=== PATIENT | female | born 1980 | race Caucasian/White ===

== ENCOUNTER → 2024-04-14 08:02 | Outpatient (REF) | payer OTHER, SELFPAY ==
--- NOTE | 2024-04-14 08:10 | HM_ITS ---
* Total monitoring time 2 weeks. * Underlying rhythm is sinus with an average rate of 83/Min. * Rare supraventricular ectopy. * Rare ventricular ectopy. * No significant pauses or high-grade AV blocks. * Shortness of breath, heart racing in patient diary correlates with sinus rhythm, sinus tachycardia. MTDD
--- NOTE | 2024-04-14 08:10 | CA_ITS ---
Transthoracic Echocardiogram Patient (Last, First, Middle): Rachael Leigh, Gender: Female Date of : 1980 Age: 43 Procedure Date: 04/14/2024 Procedure Type: Transthoracic Echocardiogram Location: OP Height: 157. 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 The visually estimated ejection fraction is between 55-60%. Diastolic function is normal for age. - Normal right ventricular cavity size and systolic function. Findings Left Ventricle Normal left ventricular size, thickness, systolic function, and wall motion. The visually estimated ejection fraction is between 55-60%. Diastolic function is normal for age. Right Ventricle Normal right ventricular cavity size and systolic function. Atria The left atrium is normal in size. The right atrium is normal in size. Aortic Valve Normal aortic valve structure and function. There is no aortic valve stenosis. There is no aortic valve regurgitation. Mitral Valve The mitral valve appears normal. There is no mitral valve regurgitation. There is no mitral valve stenosis. Pulmonic Valve The pulmonic valve is likely normal. There is no pulmonic valve regurgitation. Tricuspid Valve Normal tricuspid valve structure. There is no tricuspid valve regurgitation. Tricuspid regurgitation envelope is inadequate for calculation of right ventricular systolic pressure. Normal right atrial pressure. Great Vessels All visible segments of the aorta are normal in size. The visualized portions of the pulmonary artery and branches are normal. Venous The inferior vena cava is normal in size and collapses greater than 50% with inspiration. Pericardium/Pleural There is no evidence of pericardial effusion. Prior Study Comparison No prior study available for comparison. Measurements 2D Linear Measurements IVSd: 0.89 0.6-0.9/0.6-1.0 cm LVIDd: 3.87 3.9-5.3/4.2-5.9 cm LVIDd Index: 2.05 2.4-3.2/2.2-3.1 cm/m2 LVIDs: 2.47 2.0-3.6 cm LVPWd: 1.02 0.7-1.1 cm LA Diam: 2.90 2.7-3.8/3.0-4.0 cm LAIDs Index: 1.53 1.5-2.3 cm/m2 LV Mass: 140.23 67-162/88-224 g LV Mass Index: 74.20 43-95/49-115 g/m2 LVOT Diam: 2.10 3.0+(-)1.3 cm 2D Systolic Function EF 4C: 62.50 >55% EF 2C: 59.80 >55% EF BiP: 62.60 >55% Mitral Valve MV Pk E: 0.74 MV PK A: 0.61 MV Decel Time: 203.00 E/A: 1.20 E'Lateral: 13.90 E'Medial: 9.25 E/E' Med: 8.00 E/E' Lat: 5.30 PHT: 59.00 MVA PHT: 3.73 Decel [place]: 3.65 Aortic Valve AoV Pk Ricardo: 1.12 AoV Mn Ricardo: 0.81 AoV VTI: 0.23 AoV Pk Grad: 5.00 Aov Mn Grad: 3.00 MELISSA Cont.VTI: 2.46 LVOT LVOT Pk Ricardo: 0.84 LVOT Mn Ricardo: 0.58 LVOT VTI: 0.16 LVOT Pk Grad: 3.00 LVOT Mn Grad: 2.00 LVOT Diam: 2.10 LVOT Area: 3.46 Diastolic Function MV Pk E: 0.74 MV Pk A: 0.61 E/A: 1.20 E'Medial: 9.25 E/E' Med: 8.00 E' Laterial: 13.90 E/E' Lat: 5.30 Right Ventricle TAPSE (mm): 24.30 TVS' Ricardo: 10.90 Tricuspid Valve RA Press: 3.00 Great Vessels Aorta Sinus of Valsalva: 3.10 2.0-3.5 cm Ao Asc: 2.70 2.1-3.4 cm Pulmonary Valve PV Pk Ricardo: 0.86 Peak PV Grad: 3.00 Updated in Other Vendor System with Status of Final Lito Jeff MD electronically signed on 04/16/2024 12:52:33 PM with status of Final
== END ==
LOC: HO.CARD 08:02
PROVIDERS: PCP Student in an Organized Health Care Education/Training Program; Visit Provider Internal Medicine Cardiovascular Disease
DX: R00.0 Tachycardia, unspecified (principal)
CPT/HCPCS: 93246; 93306

== ENCOUNTER 2024-05-30 13:36 | Outpatient (AMB) | payer OTHER, SELFPAY ==
[2024-05-30 14:22] VITALS: BP 130/60; PULSE 94; BMI 35.1
--- NOTE | 2024-05-30 14:22 | A.OFFVIS_ITS ---
Vital Signs 05/30/24 14:22 Height 5 ft 2 in Weight 191 lb 12.835 oz BMI 35.1 BP 130/60 Blood Pressure Location Lt brachial Position Sitting Pulse 94 Pulse Source Pulse Oximeter Intake Visit Reasons: 2m follow up Owner/Photographer Required: No Accompanied by: Self / Same As Patient Allergies naproxen Allergy (Verified 05/24/24 12:29) Unconscious aspirin Adverse Reaction (Verified 05/24/24 12:29) Vomiting NSAIDS (Non-Steroidal Anti-Inflamma Adverse Reaction (Verified 05/24/24 12:29) Vomiting Medication List - Last Reconciled 05/30/24 by Burak Calvin NP atorvastatin 40 mg PO BEDTIME budesonide 180 mcg/actuation (Pulmicort Flexhaler) 180 mcg inhalation DAILY [buspirone 7.5 mg PO 3XD] diphenhydramine HCl (Benadryl) 50 mg PO BID PRN escitalopram oxalate 10 mg PO DAILY estradiol 1 patch transdermal QWEEK famotidine 20 mg PO DAILY loratadine 10 mg PO 2XD montelukast 10 mg PO DAILY triamcinolone acetonide 1 spray intranasal BID HPI Comments Details: This is a 44-year-old female patient presenting for a follow-up visit. Patient with a history of asthma and erythrocytosis of unclear etiology, which which is being followed by Hematology. Patient undergoes periodic therapeutic phlebotomy and during the last 2 sessions, it was noticed that her heart rate was elevated. As a result she was referred to Cardiology and was seen in our offic recently, after which she underwent a Holter monitor and echo cardiogram. Today the patient reports feeling well overall and denies any symptoms including exertional chest pain, shortness of breath, palpitations, dizziness, fatigue, orthopnea, PND, leg edema, presyncope, or syncope. Patient notes that she gets short of breath sometimes but attributes it to her asthma as she notices that with her inhaler, she feels better. Patient notes that her hydration is not optimal and that she has a fear of needles which may be the reason for her elevated heart rate. [facility] Medical History Hernia Scoliosis Migraine IBS (irritable bowel syndrome) Family History Maternal Aunt Breast cancer Mother Lung cancer Social History Household Members: Family Alcohol intake: current Alcohol intake frequency: holidays/special occasions only Patient Tobacco Use Status: Never used Tobacco Substance Use Type: Marijuana service: No Current occupational status: employed Review of Systems Const Denies chills, Denies fatigue, Denies fever(s), Denies weight gain and Denies weight loss ENT Denies dizziness Card Denies chest pain, Denies leg edema, Denies lightheadedness, Denies palpitations, Denies dyspnea on exertion, Denies orthopnea and Denies other Resp Denies cough and Denies dyspnea on exertion GI Denies hematochezia and Denies change in stool character Musc Denies abnormal gait, Denies muscle weakness, Denies numbness, Denies radiating pain into limb and Denies tingling Neuro Denies abnormal gait, Denies dizziness, Denies numbness and Denies tingling Endo Denies fatigue and Denies palpitations Physical Exam Vital Signs: Last Vital Signs Pulse 94 05/30/24 14:22 BP 130/60 05/30/24 14:22 BMI result Body Mass Index 35.1 Const General: cooperative, healthy appearing, comfortable and no acute distress Orientation/consciousness: patient oriented x3 HEENT Head: Yes normal to inspection Neck Neck: Yes normal visual inspection, Yes trachea midline and Yes supple Chest Chest palpation & inspection: normal inspection of the chest Resp Effort & Inspection: normal respiratory effort Auscultation: clear to auscultation bilaterally, no crackles, no rales, no rhonchi and no wheezes Cardio Jugular venous distension: no JVD Palpation: normal PMI Rate: regular rate Rhythm: regular rhythm Heart sounds: S1 normal heart sound present, S2 normal heart sound present, no click, no gallops, no murmurs and no rubs Peripheral pulses: Peripheral pulses 2+ throughout GI Inspection: Yes normal to inspection Palpation (GI): Soft to palpation Auscultation: normal bowel sounds Skin General skin exam: no rashes or lesions noted Neuro General: patient oriented x3 Extrem General: Yes normal to inspection, No no pedal edema and No calf tenderness Psych Appearance: grossly normal Mental Status: mental status grossly normal Speech and movement: Normal speech and movement present Assessment & Plan Assessment & Plan (1) Tachycardia: Code(s): R00.0 - Tachycardia, unspecified Category: Medical Plan: 04/14/2024-Holter study showed an underlying normal sinus rhythm with average rate of 83 beats per minute, rare supraventricular ectopy, rare ventricular ectopy. 04/14/2024-echo study showed a normal ejection fraction between 55-60% with no wall motion or valvular abnormalities. As noted above, the patient's tachycardia may be related to her anxiety around needles and suboptimal hydration status, both of which could contribute to an elevated heart rate. Advised heart healthy diet, regular exercise, proper hydration, losing weight, and stress medication strategies. Patient will follow-up in the office on an as needed basis. In the interim, patient will call the office with any concerns or change in symptoms. Advised patient to seek ER care in case of exertional chest pain not resolved with rest. This note was generated using voice recognition software. While every effort has been made to ensure accuracy and proper graduation coach, there may be occasional errors that could affect the content or meaning of the described symptoms. Coding Level of Care Code Est Pt Level 3 (27545) Diagnoses Tachycardia R00.0 Time Spent (min) 28 Comment Time spent in reviewing the chart, test results, assessment, counseling and documentation.
== END 2024-05-30 14:44 | disposition home or self-care (01) ==
LOC: HO.HCS 13:36
PROVIDERS: PCP Student in an Organized Health Care Education/Training Program
DX: R00.0 Tachycardia, unspecified (principal)
CPT/HCPCS: 99213

== ENCOUNTER 2024-08-28 13:54 | Outpatient (REF) | payer OTHER, SELFPAY | END 2024-08-28 13:55 | disposition home or self-care (01) | LOC: HO.BBR 13:54 | PROVIDERS: PCP Student in an Organized Health Care Education/Training Program; Visit Provider Internal Medicine Medical Oncology | DX: D45 Polycythemia vera (principal) | CPT/HCPCS: 85018; 99195 ==

== ENCOUNTER 2024-12-14 09:58 | Outpatient (REF) | payer OTHER, SELFPAY | END 2024-12-14 09:59 | disposition home or self-care (01) | LOC: HO.BBR 09:58 | PROVIDERS: PCP Student in an Organized Health Care Education/Training Program; Visit Provider Internal Medicine Medical Oncology | DX: D75.1 Secondary polycythemia (principal) | CPT/HCPCS: 85018; 99195 ==